=== PATIENT | female | born 1995 | race Caucasian/White ===

== ENCOUNTER 2017-10-04 21:37 | Emergency (ER) | payer BC ==
[~2017-10-04] VITALS: Ht 167.6 cm; Wt 83.0 kg
[2017-10-04 21:57] VITALS: BP 107/58; PULSE 75; RESP 16; TEMP 98.6; O2SAT 100
--- NOTE | 2017-10-04 23:22 | PD ---
HPI Chief Complaint: Related Problem Time Seen by Provider: 22:18 Travel History International Travel<30 days: Yes Contact w/Intl Traveler<30days: Yes Name of Country Traveled to: [place] Traveled to known affect area: No History of Present Illness HPI Patient is a 22-year-old female who is having 1 day of spotting it started after she was voiding she would wipe the toilet paper and see bright red blood on the toilet paper then later today she was having mild cramping like earlier. Pain and she had bleeding in her underwear without urination. She is 12 weeks she has had 2 ultrasounds that show an intrauterine the first 1-5 weeks did not show heart then she came back at 8 weeks and there was a heart she is scheduled to have one again on Sunday complaining of mild cramping like pain with bright red blood in her underwear she is she denies nausea vomiting no trauma no other complications it is been going on for 24 hours. She has not seen her business functional analyst for this sudden starting of bleeding PFSH Past Medical History Medical History: Denies Significant Hx Diabetes: Yes (Insulin Resistant) Patient Takes Glucophage: No Tetanus Vaccination: < 5 Years Influenza Vaccination: No ?: : 2 Para: 1 Past Surgical History Section: Yes Tonsillectomy: Yes Social History Alcohol Use: No Tobacco Use: No Substance Use: No Allergies-Medications (Allergen,Severity, Reaction): Coded Allergies: Sulfa (Sulfonamide Antibiotics) (Verified Allergy, Unknown, 10/04/17) Review of Systems Except as stated in HPI: all other systems reviewed are Neg Genitourinary: Positive: Vaginal Bleeding Physical Exam Narrative GENERAL: non toxic appearing SKIN: Warm and dry. no pallor HEAD: Atraumatic. Normocephalic. EYES: Pupils equal and round. No scleral icterus. No injection or drainage. ENT: No nasal bleeding or discharge. Mucous membranes pink and moist. NECK: Trachea midline. No JVD. CARDIOVASCULAR: Regular rate and rhythm. RESPIRATORY: No accessory muscle use. Clear to auscultation. Breath sounds equal bilaterally. GASTROINTESTINAL: Abdomen soft, mild suprapubic hypoumbilical pain tender, nondistended. Hepatic and splenic margins not palpable. MUSCULOSKELETAL: Extremities without clubbing, cyanosis, or edema. No obvious deformities. NEUROLOGICAL: Awake and alert. No obvious cranial nerve deficits. Motor grossly within normal limits. Five out of 5 muscle strength in the arms and legs. Normal speech. PSYCHIATRIC: Appropriate mood and affect; insight and judgment normal. Data Data Last Documented VS Vital Signs Date Time Temp Pulse Resp B/P (MAP) Pulse Ox O2 Delivery O2 Flow Rate FiO2 10/04/17 21:57 98.6 75 16 107/58 (74) 100 Orders Orders Beta Hcg (Quant/Titer) (10/04/17 22:41) Ed Urine Pregnancytest Poc (10/04/17 22:41) Abo/Rh Blood Type (10/04/17 22:41) Complete Blood Count With Diff (10/04/17 22:49) Urinalysis - C+S If Indicated (10/04/17 22:49) Us Pelvis (Ques Preg/Ectopic) (10/04/17 22:41) Ed Discharge Order (10/05/17 00:31) Labs Laboratory Tests Test 10/04/17 22:56 White Blood Count 11.3 TH/MM3 Red Blood Count 4.31 MIL/MM3 Hemoglobin 12.7 GM/DL Hematocrit 37.3 % Mean Corpuscular Volume 86.5 FL Mean Corpuscular Hemoglobin 29.5 PG Mean Corpuscular Hemoglobin Concent 34.1 % Red Cell Distribution Width 13.1 % Platelet Count 262 TH/MM3 Mean Platelet Volume 8.2 FL Neutrophils (%) (Auto) 63.1 % Lymphocytes (%) (Auto) 28.0 % Monocytes (%) (Auto) 6.4 % Eosinophils (%) (Auto) 1.9 % Basophils (%) (Auto) 0.6 % Neutrophils # (Auto) 7.1 TH/MM3 Lymphocytes # (Auto) 3.2 TH/MM3 Monocytes # (Auto) 0.7 TH/MM3 Eosinophils # (Auto) 0.2 TH/MM3 Basophils # (Auto) 0.1 TH/MM3 CBC Comment DIFF FINAL Differential Comment Urine Color LIGHT-YELLOW Urine Turbidity CLEAR Urine pH 7.0 Urine Specific [place] 1.012 Urine Protein NEG mg/dL Urine Glucose (UA) NEG mg/dL Urine Ketones NEG mg/dL Urine Occult Blood MOD Urine Nitrite NEG Urine Bilirubin NEG Urine Urobilinogen LESS THAN 2.0 MG/DL Urine Leukocyte Esterase NEG Urine RBC 1 /hpf Urine WBC 1 /hpf Urine Squamous Epithelial Cells 2 /hpf Urine Mucus FEW /lpf Microscopic Urinalysis Comment CULT NOT INDICATED Human Chorionic Gonadotropin, Quant 997 MIU/ML MDM Medical Decision Making Medical Screen Exam Complete: Yes Emergency Medical Condition: Yes Differential Diagnosis round ligamnt pain , placenta engorgment causing bleeding vs UTI , vs placenta abruptio other vag bled in demise , missed AB threatened AB Narrative Course I DO a bedside SONO trans abdominal and I do not find a heart beat, no clear CRL no discreet pole I order official US and pt has a demise with no heart beat and abnormal appearance to the pole much smaller than dates , I order a official US and tech reports no heart activity and demise Diagnosis Primary Impression: demise before 20 weeks with retention of fetus Referrals: Emerald Whelan MD [facility] Patient Instructions: General Instructions, Intrauterine Demise (ED) Additional Instructions: You have a dmise which means the fetus stopped developing a week or so ago and is no longer alive. There is no cardiac activity and you lab level beta HCG is 997. Please call your MD tomorrow to arrange plans for evacuation of your uterus. THis can be done wit hmedication or a surgical procedure. It is necessary that the remains be removed if you do not pass them in the next 3 days . Call you SENIOR SPECIALIST in AM . If any complication with follow up return to the ER . Disposition: 01 DISCHARGE HOME Condition: Good Matthieu Villalpando MD Oct 04, 2017 23:22
[2017-10-04 23:23] LABS: AUTOMATED NEUTROPHIL # 7.1 TH/MM3 (1.8-7.7); BASOPHIL # 0.1 TH/MM3 (0-0.2); BASOPHIL % 0.6 % (0.0-2.0); EOSINOPHIL # 0.2 TH/MM3 (0-0.4); EOSINOPHIL % 1.9 % (0.0-4.0); HEMATOCRIT 37.3 % (35.0-46.0); HEMOGLOBIN 12.7 GM/DL (11.6-15.3); LYMPHOCYTE # 3.2 TH/MM3 (1.0-4.8); MEAN CELL VOLUME 86.5 FL (80.0-100.0); MEAN CORPUSCULAR HEMOGLOBIN 29.5 PG (27.0-34.0); MEAN CORPUSCULAR HGB CONC 34.1 % (32.0-36.0); MEAN PLATELET VOLUME 8.2 FL (7.0-11.0); MONO % 6.4 % (0.0-8.0); MONOCYTE # 0.7 TH/MM3 (0-0.9); NEUT % 63.1 % (16.0-70.0); PLATELET COUNT 262 TH/MM3 (150-450); RED BLOOD COUNT 4.31 MIL/MM3 (4.00-5.30); RED CELL DISTRIBUTION WIDTH 13.1 % (11.6-17.2); WHITE BLOOD COUNT 11.3 TH/MM3 (4.0-11.0)
[2017-10-04 23:45] LABS: BILIRUBIN, URINE NEG (NEG); BLOOD, URINE MOD (NEG); GLUCOSE,URINE NEG (NEG); KETONE, URINE NEG (NEG); MUCUS URINE FEW /lpf (OCC); NITRITE,URINE NEG (NEG); SQUAMOUS EPITHELIAL CELL URINE 2 /hpf (0-5); URINE COLOR LIGHT-YELLOW (YELLW/STRAW); URINE LEUKOCYTE ESTERASE NEG (NEG)
--- NOTE | 2017-10-05 00:41 | RADRPT ---
EXAM DATE/TIME: 10/04/2017 23:56 [facility] COMPARISON: No previous studies available for comparison. INDICATIONS : Cramping and spotting x 1 day. LAB(S): Beta-hC MEDICAL HISTORY : . SURGICAL HISTORY : section. Tonsillectomy. ENCOUNTER: Initial ACUITY: 1 day PAIN SCORE: 5/10 LOCATION: pelvis MEASUREMENTS: UTERUS: 10.8 x 7.7 x 5.9 cm RIGHT OVARY: 2.7 x 1.9 x 1.9 cm LEFT OVARY: 3.7 x 2.3 x 2.4 cm FINDINGS: A gestational sac and pole are identified. The gestational sac measures 4.1 cm, characteristic of 9 week 4 day size. The pole has a crown-rump length of 2.1 cm, characteristic of 8 weeks 5 day. No heart rate is documented with Doppler. No evidence of free fluid. The ovaries have a homogeneous echotexture. No hyperemic areas seen by color Doppler in either adnexa. Patient declin ed transvaginal exam. CONCLUSION: 1. Intrauterine with no heart rate documented by Doppler. 2. One week discrepancy in size between gestational sac and pole. 3. No evidence of free fluid. Juan Carlos Tobar MD on October 05, 2017 at 0:34 Board Certified Radiologist. This report was verified electronically.
== END 2017-10-05 00:51 | disposition home or self-care (01) ==
LOC: NEPE 21:37
DX: O02.1 Missed abortion (principal); O24.911 Unspecified diabetes mellitus in pregnancy, first trimester; Z88.2 Allergy status to sulfonamides; Z3A.12 12 weeks gestation of pregnancy
CPT/HCPCS: 76700; 81001; 84702; 84703; 85025; 86900; 86901; 99284